=== PATIENT | female | born 1990 ===

== ENCOUNTER 2018-03-06 05:26 | Inpatient (IN) | payer MEDICAID, OTHER ==
[2018-03-06] MEDS ORDERED: Lactated Ringer's 2,000 ML IV ONE (06:44)
[2018-03-06] MEDS ORDERED: Lactated Ringer's 1,000 ML IV SCH (06:45)
[2018-03-06] MEDS ORDERED: Lidocaine 1% 20 MG/2 ML PF AMP ONE (07:22)
[2018-03-06] MEDS ORDERED: Lidocaine 2% PF (10 ml) Amp ONE (07:27)
[2018-03-06] MEDS ORDERED: Oxytocin 30 units/LR 500ML 30 U/500 ML BAG IV ONE (07:31)
[2018-03-06] MEDS ORDERED: Benzocaine/Menthol SPRAY TOP PRN (07:32)
[2018-03-06] MEDS ORDERED: Oxycodone/Acetaminophen 5/325 mg Tab PO PRN ×2 (07:32→11:40)
[2018-03-06] MEDS ORDERED: OXYTOCIN/0.9 % NS 20 UNIT/1,000 ML BAG IV SCH (07:45)
--- NOTE | 2018-03-06 07:56 | OBHP ---
Datetime: 03/06/2018 06:23 IP Adm Impression: Term, intrauterine ; Intact Membranes IP Adm Impression Other: latent phase of labor IP Admit Plan: Admit to unit; Initiate protocol Admit Comment, IP Provider: Pt is a 38.3wks G4 A: IUP at 38+w Previous C/S x1; previous x 1 Ealry labor GDMA1 PLAN: Admit to L_D Labs; IVF; Labor, vs C/S discussed, pain management, delivrey and discussed. Informed consent for discussed Extremities - PN: Normal Abdomen - PN: Normal Lungs - PN: Normal Heart - PN: Normal HEENT - PN: Normal General - PN: Normal Presentation-Admit: Vertex FHR - Baseline A Provider: 150's Membranes, Provider: Intact Contraction Comments Provider: + Pool Provider: Negative IP Hx Assessment: The History has been Reviewed and is Current EGA AdmitDate IP: 38.3 Vital Signs Provider: Reviewed; Within Normal Limits IP Chief Complaint: Uterine contractions NICHD Variability Prov Fetus A: Moderate 6-25bpm NICHD Accel Fetus A IP Provider: 15X15 FHR Category Provider Fetus A: Category I NICHD Decel Fetus A IP Provider: None Dilatation, Provider: 4 Effacement, Provider: 100 Station, Provider: -1
[2018-03-06 08:12] LABS: BASO % 0.3 % (0.0-2.0); EOS # 0.1 K/uL (0.0-0.7); EOS % 0.6 % (0.0-4.0); HEMOGLOBIN 12.2 g/dL (12.0-16.0); LYMPH # 3.3 K/uL (1.0-4.3); LYMPH % 21.3 % (20.0-40.0); MEAN CORPUSCULAR HEMOGLOBIN 25.5 pg (27.0-31.0); MEAN CORPUSCULAR HGB CONC 32.7 g/dL (33.0-37.0); MONO # 1.5 K/uL (0.0-0.8); MONO % 9.4 % (0.0-10.0); NEUT # 10.7 K/uL (1.8-7.0); NEUT % 68.4 % (50.0-75.0); NRBC % 0.1 % (0.0-0.0); RBC 4.77 Mil/uL (3.80-5.20); RED CELL DISTRIBUTION WIDTH 16.2 % (11.5-14.5); WHITE BLOOD COUNT 15.6 K/uL (4.8-10.8)
[2018-03-06 08:21] LABS: BLOOD UREA NITROGEN 12 mg/dl (7-17); CALCIUM 9.6 mg/dL (8.4-10.2); GFR NON-AFRICAN AMERICAN > 60
[2018-03-06 08:22] VITALS: RESP 18; O2SAT 99
[2018-03-06] MEDS ORDERED: Multivitamin With Minerals Tab PO SCH (09:00)
[2018-03-06] MEDS: Benzocaine/Menthol SPRAY TOP PRN (16:09)
[2018-03-07 06:39] LABS: BASO # 0.1 K/uL (0.0-0.2); BASO % 0.6 % (0.0-2.0); EOS # 0.1 K/uL (0.0-0.7); HEMOGLOBIN 10.3 g/dL (12.0-16.0); LYMPH % 15.1 % (20.0-40.0); MEAN CELL VOLUME 77.6 fl (81.0-99.0); MEAN CORPUSCULAR HEMOGLOBIN 25.3 pg (27.0-31.0); MEAN CORPUSCULAR HGB CONC 32.6 g/dL (33.0-37.0); MEAN PLATELET VOLUME 6.7 fl (7.2-11.7); MONO # 1.6 K/uL (0.0-0.8); MONO % 11.6 % (0.0-10.0); NEUT # 9.6 K/uL (1.8-7.0); NEUT % 71.7 % (50.0-75.0); RBC 4.05 Mil/uL (3.80-5.20); RED CELL DISTRIBUTION WIDTH 16.1 % (11.5-14.5); WHITE BLOOD COUNT 13.4 K/uL (4.8-10.8)
[2018-03-07] MEDS: Multivitamin With Minerals Tab PO SCH (08:44)
--- NOTE | 2018-03-07 16:28 | OBPPN ---
Datetime: 03/07/2018 07:53 PP Pain Prov: Within normal limits PP Nausea Prov: Denies PP Flatus Prov: Yes PP BM Prov: No PP Heart Prov: Normal PP Lungs Prov: Normal PP Abdomen/Uterus Prov: Normal PP Lochia Prov: Normal PP Extremities Prov: Normal PP C/S Incision Prov: Not Applicable PP Progress Prov: Normal PP Impression Prov: Normal progression PP Plan Prov: Continue present management PP Progress Note Prov: S: Pt is a 27 yo 38.3 wk s/p on 03/06/18 PPD 1. Seen and examined at bedside this am. Patient denies any significant overnight events. Reports mild pelvic pain which is controlled with pain medicine. OOB/Ambulation well without dizziness. Breast/bottle feeding witho ut difficulty. Tolerating regular diet. Lochia is similar to menses. Voiding freely with no blood no josh, Patient has not had a bowel movement, but is passing gas per rectum. Denies fever/chills, diarrh ea, nausea/vomiting, CP/SOB , Lightheadedness. O: BP:107/65, HR:56, T:97.9F CBC-10.3/31.4, blood type: O+, rubella: Immune PHYSICAL EXAM: GEN: AAOx3, Resting comfortably in bed, NAD HEENT: NCAT, White sclera, pink conjunctiva, oral mucosa moist. LUNGS: CTA B/L, no wheezing, rhonchi, or rales, B/L chest rise CVS: RRR, S1, S2, No murmurs, rubs, gallops ABD: ND, +BS, firm fundus @ umbilical level. Soft, appropriate TTP EXT: no edema, negative Porfirio's sign, calves non tender NEURO/Psych: no gross focal deficit, preserved affect and mood. A/P 27y/o post , had a on 03/06/18 @ 7:22am. Pt afebrile, tolerating pain with medic ation, tolerating regular diet, adequate urine output. Encouraged breast feeding and ambulation Ibuprofen 600mg mild pain PNV 1 tab po daily Post op contraception- Unsure still F/U 4-6 weeks for post- visit at the [facility] Vannesa Nogueira M.D. PGY-1 Patient was seen and case discussed with Dr. Moore IP PP Procedures: None Vital Signs Provider PP: Reviewed; Within Normal Limits
[2018-03-08] MEDS: Benzocaine/Menthol SPRAY TOP PRN (09:01)
[2018-03-08] MEDS: Multivitamin With Minerals Tab PO SCH (09:02)
--- NOTE | 2018-03-08 10:03 | OBPPN ---
Datetime: 03/08/2018 07:29 PP Pain Prov: Within normal limits PP Nausea Prov: Denies PP Flatus Prov: Yes PP BM Prov: Yes PP Heart Prov: Normal PP Lungs Prov: Normal PP Abdomen/Uterus Prov: Normal PP Lochia Prov: Normal PP Extremities Prov: Normal PP C/S Incision Prov: Not Applicable PP Impression Prov: Normal progression PP Plan Prov: Continue present management PP Progress Note Prov: S: Pt is a 27 yo 38.3 wk s/p on 03/06/18 PPD 2. Seen and examined at bedside this am. Patient denies any significant overnight events. Reports mild pelvic pain which is controlled with pain medicine. OOB/Ambulation well without dizziness. Breast/bottle feeding witho ut difficulty. Tolerating regular diet. Lochia is similar to menses. Voiding freely with no blood no josh, Patient has had a bowel movement, and is passing gas per rectum. Denies fever/chills, diarrhea, nausea/vomiting, CP/SOB , Lightheadedness. O: BP:109/66, HR:58, T98.3:F CBC-10.3/31.4, blood type: B+, rubella: Immune PHYSICAL EXAM: GEN: AAOx3, Resting comfortably in bed, NAD HEENT: NCAT, White sclera, pink conjunctiva, oral mucosa moist. LUNGS: CTA B/L, no wheezing, rhonchi, or rales, B/L chest rise CVS: RRR, S1, S2, No murmurs, rubs, gallops ABD: ND, +BS, firm fundus @ umbilical level. Soft, appropriate TTP EXT: no edema, negative Porfirio's sign, calves non tender NEURO/Psych: no gross focal deficit, preserved affect and mood. A/P 27y/o post , had a on 03/06/18 @ 7:22am. Pt afebrile, tolerating pain with medic ation, tolerating regular diet, adequate urine output. Encouraged breast feeding and ambulation Ibuprofen 600mg mild pain PNV 1 tab po daily Post op contraception- Unsure F/U 4-6 weeks for post- visit at the [facility] Vannesa Nogueira M.D. PGY-1 Patient was seen and case discussed with Dr. Moore The patient was seen with the resident I agree with the note IP PP Procedures: None Vital Signs Provider PP: Reviewed; Within Normal Limits Datetime: 03/07/2018 07:53 PP Breasts Prov: Normal PP Vulva/Perineum Prov: Normal PP CVA Tenderness Prov: Normal
--- NOTE | 2018-03-08 10:03 | OBDCSUM ---
Datetime: 03/08/2018 07:20 Discharged to, Provider: Home Follow up at, Provider: [facility] Disch Instr Activity: May be up to bathroom; May be up for meals; May Shower Disch Instr Diet: Regular Discharge Instructions, Provider: Routine instructions given Discharge Diagnosis, Provider: Term Delivered Discharge Time: 03/08/2018 09:00 Follow up in weeks, Provider: 6 weeks Disch Referrals: None Disch Activity Restrictions: Minimize stair-climbing; No sexual activity; Nothing in vagina - Interc ourse, tampons, douche Discharge Comment, Provider: 1. Continue . 2. Ibuprofen as needed for moderate pain. 3. Continue walking as much as tolerated. 4. 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 5. Please see your doctor in 6 weeks. 6. No heavy lifting or anything in the vagina for 6 weeks. 7. Please avoid stairs if possible. 8. If you develop severe or worsening pain, please go to the ED. The patient was seen with the resident I agree with the note Contraception after Delivery: Undecided
[2018-03-08 19:23] VITALS: BP 122/70; PULSE 80; TEMP 98.2
--- NOTE | 2018-03-15 17:01 | OBADHP ---
Datetime: 03/06/2018 06:23 IP Adm Impression Other: latent phase of labor Admit Comment, IP Provider: Pt is a 38.3wks PERLA 03/17/18 based on LMP 06/01/17. Patient has be en having contractions since 3am every 10 mins, she went into the shower and the mucus plug came out, now at a frequency of 3-5 mins in early labor. Patient is a [facility] clinic patient and sees Dr. Moore. Denies Loss of fluid or vaginal bleeding. Patient states babies moving well. Patient has gest DM diet controlled states her finger stick was 115 yesterday. 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 PGY-1 Case reveiwed and discussed with Dr. Luis A: IUP at 38+w Previous C/S x1; previous x 1 Ealry labor GDMA1 PLAN: Admit to L_D Labs; IVF; Labor, vs C/S discussed, pain management, delivrey and discussed. Informed consent for discussed Extremities - PN: Normal Abdomen - PN: Normal Lungs - PN: Normal Heart - PN: Normal HEENT - PN: Normal General - PN: Normal Presentation-Admit: Vertex FHR - Baseline A Provider: 150's Membranes, Provider: Intact Contraction Comments Provider: + Pool Provider: Negative IP Hx Assessment: The History has been Reviewed and is Current Vital Signs Provider: Reviewed; Within Normal Limits IP Chief Complaint: Uterine contractions NICHD Variability Prov Fetus A: Moderate 6-25bpm NICHD Accel Fetus A IP Provider: [id number] FHR Category Provider Fetus A: Category I NICHD Decel Fetus A IP Provider: None Dilatation, Provider: 4 Effacement, Provider: 100 Station, Provider: -1 EGA AdmitDate IP: 38.3 IP Adm Impression: Term, intrauterine ; Intact Membranes IP Admit Plan: Admit to unit; Initiate protocol Datetime: 02/05/2018 14:30 Pelvic Type - PN: Adequate Back - PN: Normal Breast - PN: Not Done Thyroid - PN: Not Done Neurologic - PN: Normal Genitourinary Exam: Normal DTRs - PN: Not Done
== END 2018-03-08 13:25 | disposition home or self-care (01) | DRG 373 ==
LOC: H.EROB2 05:26 → H.L&D 07:02 → H.OB/GYN 11:43
PROVIDERS: ADMIT Obstetrics & Gynecology; ATTEND Obstetrics & Gynecology
PROC: 0W8NXZZ Division of Female Perineum, External Approach (ICD-10-PCS; principal; 2018-03-06)
PROC: 10E0XZZ Delivery of Products of Conception, External Approach (ICD-10-PCS; 2018-03-06)
PROC: 4A1HXCZ Monitoring of Products of Conception, Cardiac Rate, External Approach (ICD-10-PCS; 2018-03-06)
DX: O34.211 Maternal care for low transverse scar from previous cesarean delivery (principal); N85.8 Other specified noninflammatory disorders of uterus; Z3A.38 38 weeks gestation of pregnancy; Z37.0 Single live birth; O69.81X0 Labor and delivery complicated by cord around neck, without compression, not applicable or unspecified